=== PATIENT | female | born 1960 | race Caucasian/White ===

== ENCOUNTER → 2017-04-18 | Day surgery (SDC) | payer MEDICARE ==
[~2017-04-18] VITALS: Ht 162.6 cm; Wt 78.2 kg
== END | disposition home or self-care (01) ==
LOC: FAS 06:08
DX: M75.122 Complete rotator cuff tear or rupture of left shoulder, not specified as traumatic (principal); M75.42 Impingement syndrome of left shoulder; M19.012 Primary osteoarthritis, left shoulder; S43.432A Superior glenoid labrum lesion of left shoulder, initial encounter; I10 Essential (primary) hypertension; I25.2 Old myocardial infarction; E78.00 Pure hypercholesterolemia, unspecified; E03.9 Hypothyroidism, unspecified; M79.7 Fibromyalgia; Z98.84 Bariatric surgery status; Z88.2 Allergy status to sulfonamides; Z95.5 Presence of coronary angioplasty implant and graft; Z79.890 Hormone replacement therapy; Z79.899 Other long term (current) drug therapy
CPT/HCPCS: C1713; J2704; J3010

== ENCOUNTER 2021-01-20 12:21 | Emergency (ER) | payer MEDICARE ==
[~2021-01-20 12:21] MED LIST: ALEVE220 M1 PO; ASPIRIN CHEWABL81 MG PO; CYMBALTA 30MG C30 MG PO; DICLOFENAC SODI75 MG PO; DULOXETINE HCL60 MG PO; LOMAIRA8 MG PO; LOSARTAN-HCTZ1 EAC1 PO; PERCOCET 5-3251 EACH PO; PREMARIN0.3 MG PO; SYNTHROID100 MCG PO; VESICARE10 MG PO; VOLTAREN GEL TOP
[2021-01-20 13:46] LABS: BASOPHIL 0.1 % (0-2); EOSINOPHIL 0 % (0-5); HCT 38.5 % (37.0-47.0); HGB 13.1 g/dl (12.5-16.0); MCH 31.5 pg (25.0-31.0); MCV 92.5 fL (78.0-100.0); MPV 12.5 fL (6.0-9.5); NEUTROPHIL 89.4 % (41-80); NRBC 0; PLT 198 K/uL (150-400); RBC 4.16 M/uL (4.20-5.40); RDW 13.1 % (11.5-14.0); WBC 16.8 K/uL (4.0-10.5)
[2021-01-20 13:49] LABS: INR 1.01 (0.9-1.2); PROTHROMBIN TIME 12.6 SECONDS (11.4-13.6)
[2021-01-20 13:56] LABS: ALBUMIN 3.6 g/dL (3.4-5.0); BILIRUBIN - TOTAL 0.3 mg/dL (0.2-1.0); CREATININE 0.53 mg/dL (0.51-0.95); GLOBULIN (CALCULATION) 3.7 g/dL; POTASSIUM 3.4 mmol/L (3.5-5.1); TOTAL PROTEIN 7.3 g/dL (6.4-8.2)
[2021-01-20] MEDS ORDERED: VIBRAMYCIN100 MG PO (14:58)
== END 2021-01-20 15:10 | disposition home or self-care (01) ==
LOC: FER 12:21
PROVIDERS: Emergency Medicine
DX: R07.89 Other chest pain (principal); R06.02 Shortness of breath; D72.829 Elevated white blood cell count, unspecified; I10 Essential (primary) hypertension; Z95.5 Presence of coronary angioplasty implant and graft; Z88.2 Allergy status to sulfonamides
CPT/HCPCS: 36415; 71045; 80053; 84484; 85025; 85610; 85730; 93005

== ENCOUNTER 2022-03-04 14:51 | Emergency (ER) | payer MEDICARE ==
[~2022-03-04 14:51] MED LIST changes: +VIBRAMYCIN100 MG PO
[2022-03-04 17:38] LABS: BASOPHIL 0.4 % (0-2); EOSINOPHIL 1.2 % (0-5); HCT 44.5 % (37.0-47.0); HGB 14.3 g/dl (12.5-16.0); LYMPHOCYTE 22.3 % (15-48); MCH 29.7 pg (25.0-31.0); MCHC 32.1 g/dL (32.0-36.0); MCV 92.5 fL (78.0-100.0); MONOCYTE 8.6 % (0-12); MPV 12.7 fL (6.0-9.5); NEUTROPHIL 67.2 % (41-80); NRBC 0; PLT 231 K/uL (150-400); RBC 4.81 M/uL (4.20-5.40); RDW 14.6 % (11.5-14.0); WBC 7.8 K/uL (4.0-10.5)
[2022-03-04 17:51] LABS: BUN/CREAT RATIO (CALC) 29.9 RATIO; CREATININE 0.67 mg/dL (0.51-0.95); POTASSIUM 3.9 mmol/L (3.5-5.1)
[2022-03-04 17:56] LABS: LACTIC ACID 1.3 mmol/L (0.4-1.9)
[2022-03-04] MEDS ORDERED: CEPHALEXIN500 MG PO (20:00)
== END 2022-03-04 20:20 | disposition home or self-care (01) ==
LOC: FER 14:51
PROVIDERS: Physician Assistant
DX: M25.552 Pain in left hip (principal); I25.2 Old myocardial infarction; Z96.642 Presence of left artificial hip joint; Z88.2 Allergy status to sulfonamides; Z88.6 Allergy status to analgesic agent
CPT/HCPCS: 36415; 73502; 80048; 83605; 84145; 85025; 86140; J1885